=== PATIENT | female | born 1980 | race Caucasian/White ===

== ENCOUNTER 2022-11-12 23:40 | Emergency (ER) | payer OTHER ==
[~2022-11-12] VITALS: Ht 172.7 cm; Wt 75.0 kg
[2022-11-12 23:45] VITALS: O2SAT 98
[2022-11-13] MEDS ORDERED: ACETAMINOPHEN 325MG TABLET PO ONE
[2022-11-13] MEDS: LIDOCAINE 5% PATCH TOP SCH ×3 (00:46→03:28)
[2022-11-13] MEDS ORDERED: LIDO700A15 TP (03:03)
[2022-11-13] MEDS ORDERED: NAPR-1176 MT (03:03)
[2022-11-13] MEDS ORDERED: CYCL5TAB MT (03:03)
[2022-11-13 03:28] VITALS: BP 126/88
[2022-11-13 04:28] VITALS: PULSE 84; RESP 16; TEMP 97.1
== END 2022-11-13 04:30 | disposition home or self-care (01) ==
LOC: ER 23:40
DX: S09.90XA Unspecified injury of head, initial encounter (principal); M54.2 Cervicalgia; M54.9 Dorsalgia, unspecified; R51.9 Headache, unspecified; W18.39XA Other fall on same level, initial encounter; Y93.89 Activity, other specified; Y92.89 Other specified places as the place of occurrence of the external cause; Y99.8 Other external cause status
CPT/HCPCS: 81025; 99284